=== PATIENT | female | born 1995 | race Caucasian/White ===

== ENCOUNTER 2018-11-13 19:17 | Emergency (ER) | payer OTHER ==
[~2018-11-13] VITALS: Ht 160 cm; Wt 72.6 kg
[~2018-11-13 19:17] MED LIST: AMOXICILLIN 50500 MG; MACROBID 100 M100 M1 PO; NORCO 5-325 TA1 EACH; PREDNISONE 20 M20 MG; TESSALON PERLE100 MG; TUSSIONEX PENN473 ML PO; VENTOLIN HFA 1818 GM
[2018-11-13] MEDS ORDERED: IBUPROFEN 600600 M1 PO (20:01)
[2018-11-13 20:16] VITALS: BP 110/53
== END 2018-11-13 20:16 | disposition home or self-care (01) ==
LOC: M.ERS 19:17
DX: S63.92XA Sprain of unspecified part of left wrist and hand, initial encounter (principal); F17.200 Nicotine dependence, unspecified, uncomplicated; W22.8XXA Striking against or struck by other objects, initial encounter; Y93.89 Activity, other specified; Y92.89 Other specified places as the place of occurrence of the external cause; Y99.8 Other external cause status

== ENCOUNTER 2018-12-05 12:40 | Emergency (ER) | payer OTHER ==
[~2018-12-05] VITALS: Ht 162.6 cm; Wt 68.0 kg
[~2018-12-05 12:40] MED LIST changes: +IBUPROFEN 600600 M1 PO
[2018-12-05 13:14] LABS: URINE BILIRUBIN NEGATIVE (Negative); URINE BLOOD 3+ (Negative); URINE CLARITY CLEAR; URINE COLOR YELLOW; URINE GLUCOSE-RANDOM NEGATIVE (Negative); URINE KETONES NEGATIVE (Negative); URINE NITRITE-REFLEX NEGATIVE (Negative); URINE PROTEIN 1+ (Negative); URINE SPECIFIC GRAVITY 1.025 (1.005-1.030); URINE UROBILINOGEN 0.2 E.U./dl (0.2-1.0)
[2018-12-05 13:15] LABS: URINE LEUKOCYTES-REFLEX 2+ (Negative)
[2018-12-05 13:19] LABS: BACTERIA-REFLEX 1-9 Few /HPF (None Seen); CASTS None Seen /LPF (None Seen); CRYSTALS None Seen /LPF (None Seen); SQUAMOUS 0-3 Few /LPF (0-3); URINE RBC >20 Many /HPF (0-2); URINE WBC-REFLEX 6-15 Few /HPF (0-5)
[2018-12-05] MEDS ORDERED: PHENAZOPYRIDIN200 M2 PO (13:27)
[2018-12-05] MEDS ORDERED: MACROBID 100 M100 MG PO (13:27)
[2018-12-05 13:55] VITALS: BP 108/52
== END 2018-12-05 13:55 | disposition home or self-care (01) ==
LOC: M.ERS 12:40
PROVIDERS: Nurse Practitioner
DX: N39.0 Urinary tract infection, site not specified (principal)